=== PATIENT | male | born 1970 | race Caucasian/White ===

== ENCOUNTER 2018-01-01 19:18 | Emergency (ER) | payer BC ==
[2010-10-05 07:56] VITALS: BMI 25.0
[2018-01-01 20:15] LABS: EOSINOPHILS 3.4 % (0-7); HEMATOCRIT 41.1 % (42.0-54.0); HEMOGLOBIN 14.4 g/dL (13.5-17.5); IMMATURE GRANULOCYTES 0.3 % (0-5); LYMPHOCYTES 39.2 % (15-50); MCH 32.9 pg (26.0-34.0); MCV 93.8 fL (80.0-100.0); MEAN PLATELET VOLUME 10.4 fL (7.4-10.4); MONOCYTES 7.1 % (2-11); PLATELET COUNT 207 10x3/uL (130-400); RBC 4.38 10x6/uL (4.20-6.10); RDW 13.8 % (11.5-14.5); WBC 11.4 10x3/uL (4.8-10.8)
[2018-01-01 20:31] LABS: ALBUMIN 3.9 g/dL (3.4-5.0); ALKALINE PHOSPHATASE 75 U/L (46-116); ALT (SGPT) 32 U/L (10-68); BILIRUBIN - TOTAL 0.47 mg/dL (0.2-1.3); CALC OSMOLALITY 287 mosm/kg (275-300); CALCIUM 9.2 mg/dL (8.5-10.1); CARBON DIOXIDE 24.6 mmol/L (21.0-32.0); CHLORIDE - SERUM 105 mmol/L (98-107); CREATININE - SERUM 0.9 mg/dL (0.6-1.3); GLUCOSE 105 mg/dL (74-106); POTASSIUM - SERUM 3.9 mmol/L (3.5-5.1); PROTEIN - SERUM 7.5 g/dL (6.4-8.2); SODIUM 143 mmol/L (136-145); UREA NITROGEN 21 mg/dL (7-18); eGFR NON AFRICAN AMERICAN > 90 mL/min (90-120)
[2018-01-01 20:33] LABS: CREATINE KINASE 115 UL (21-232)
[2018-01-01 20:34] LABS: TROPONIN-I < 0.017 ng/mL (0.000-0.060)
== END 2018-01-01 20:40 | disposition left against medical advice (07) ==
LOC: D.ER 19:18
PROVIDERS: Family Medicine
DX: R53.1 Weakness (principal)

== ENCOUNTER 2018-12-31 19:33 | Observation (INO) | payer MEDICAID ==
--- NOTE | 2018-12-31 19:48 | NUR ---
PATIENT ARRIVED IN HANDCUFFS- DROWSY NOW, SO HANDCUFF'S REMOVED BY S.O. PT HAS BEEN SEARCHED, CHANGED INTO SCRUBS. PT STATES MAY NOT BE ABLE TO VOID YET SINCE HE HAS PROSTATE PROBLEMS. OFFERED FOOD AND DRINK, DECLINED.
[2018-12-31 20:22] LABS: BASOPHILS 0.4 % (0-2); EOSINOPHILS 1.4 % (0-7); HEMATOCRIT 40.7 % (42.0-54.0); HEMOGLOBIN 14.5 g/dL (13.5-17.5); IMMATURE GRANULOCYTES 0.3 % (0-5); LYMPHOCYTES 23.2 % (15-50); MCH 33.9 pg (26.0-34.0); MCHC 35.6 g/dL (31.0-37.0); MCV 95.1 fL (80.0-100.0); MEAN PLATELET VOLUME 10.2 fL (7.4-10.4); NEUTROPHILS 68.7 % (40-80); PLATELET COUNT 196 10x3/uL (130-400); RBC 4.28 10x6/uL (4.20-6.10); RDW 14.4 % (11.5-14.5); WBC 10.8 10x3/uL (4.8-10.8)
[2018-12-31 20:25] LABS: ALBUMIN 3.9 g/dL (3.4-5.0); ALKALINE PHOSPHATASE 68 U/L (46-116); ALT (SGPT) 23 U/L (10-68); BILIRUBIN - TOTAL 0.41 mg/dL (0.2-1.3); CALC OSMOLALITY 279 mosm/kg (275-300); CALCIUM 9.1 mg/dL (8.5-10.1); CARBON DIOXIDE 25.1 mmol/L (21.0-32.0); CHLORIDE - SERUM 105 mmol/L (98-107); GLUCOSE 98 mg/dL (74-106); POTASSIUM - SERUM 3.4 mmol/L (3.5-5.1); SODIUM 141 mmol/L (136-145); UREA NITROGEN 10 mg/dL (7-18); eGFR NON AFRICAN AMERICAN 85 mL/min (90-120)
[2018-12-31 20:43] VITALS: BP 111/76
--- NOTE | 2018-12-31 20:53 | NUR ---
PT DROWSY- AWAKENS TO PAINFUL STIMULI. IN AND OUT CATH PER STERILE TECHNIQUE- URINE TO LAB.
[2018-12-31 21:30] VITALS: BP 100/54
[2018-12-31 21:33] LABS: APPEARANCE CLEAR (CLEAR); BILIRUBIN NEGATIVE (NEGATIVE); COLOR YELLOW (YELLOW); GLUCOSE NEGATIVE (NEGATIVE); KETONE NEGATIVE (NEGATIVE); NITRITE NEGATIVE (NEGATIVE); PROTEIN NEGATIVE (NEGATIVE); SPECIFIC GRAVITY 1.015 (1.005-1.020); UROBILINOGEN NORMAL (NORMAL)
[2018-12-31 21:43] LABS: UDS - AMPHET NEGATIVE QUAL (NEGATIVE); UDS - BARB NEGATIVE QUAL (NEGATIVE); UDS - BENZO POSITIVE QUAL (NEGATIVE); UDS - COCAINE NEGATIVE QUAL (NEGATIVE); UDS - OPIATE NEGATIVE QUAL (NEGATIVE); UDS - PCP NEGATIVE QUAL (NEGATIVE); UDS - THC POSITIVE QUAL (NEGATIVE)
--- NOTE | 2018-12-31 22:30 | NUR ---
PT CON'T TO BE DROWSY- V/S STABLE. REPORT GIVEN TO JAROD SWANSON
--- NOTE | 2018-12-31 22:34 | NUR ---
IV NS AT 125ML/HOUR CON'T ON TRANSPORT TO ICU.
--- NOTE | 2018-12-31 22:45 | NUR ---
Patient arrived on unit from ER via stretcher to 2308. Patient highly agitated and refusing to allow to be connected to monitor. Patient states need to urinate, refuses to use urinal jug and slapped jug out of RN hands onto floor. [facility] and [facility], pulled out IV and ripped monitor leads/BP cuff off. Security present and attempting to assist in calming patient with no success. Dr Nagy paged and updated on current status, informed to notify Dr Ware. Dr Ware called, new orders recieved and medications given as ordered. Security posted outside of room, will continue to monitor.
--- NOTE | 2019-01-01 01:20 | NUR ---
Patient sleeping in bed with eyes closed, rouses to voice and returns to sleep easily. Patient continues to refuse monitoring, no apparent s/s of distress observed. Security outside of room, will continue to monitor.
--- NOTE | 2019-01-01 03:20 | NUR ---
Patient sleeping in bed with eyes closed, no apparent s/s of distress. Patient refuses to allow monitoring/BP cuff placement, becomes agitated/argumentative when attempting to place. Patient HR 68 with O2 sat 98% on room air, measurement from pulse ox. Affect is withdrawn/uncooperative, refuses to allow treatment. Guard outside room, will continue to monitor.
[2019-01-01 05:19] LABS: BASOPHILS 0.6 % (0-2); EOSINOPHILS 3.6 % (0-7); HEMATOCRIT 40.9 % (42.0-54.0); HEMOGLOBIN 14.3 g/dL (13.5-17.5); IMMATURE GRANULOCYTES 0.2 % (0-5); LYMPHOCYTES 38.8 % (15-50); MCH 33.4 pg (26.0-34.0); MCV 95.6 fL (80.0-100.0); MEAN PLATELET VOLUME 10.2 fL (7.4-10.4); MONOCYTES 7.5 % (2-11); NEUTROPHILS 49.3 % (40-80); PLATELET COUNT 205 10x3/uL (130-400); RBC 4.28 10x6/uL (4.20-6.10); RDW 14.5 % (11.5-14.5); WBC 9.7 10x3/uL (4.8-10.8)
[2019-01-01 06:10] LABS: ALBUMIN 3.7 g/dL (3.4-5.0); ALKALINE PHOSPHATASE 67 U/L (46-116); ALT (SGPT) 24 U/L (10-68); BILIRUBIN - TOTAL 0.59 mg/dL (0.2-1.3); CALC OSMOLALITY 283 mosm/kg (275-300); CALCIUM 8.8 mg/dL (8.5-10.1); CARBON DIOXIDE 25.4 mmol/L (21.0-32.0); CHLORIDE - SERUM 108 mmol/L (98-107); CREATININE - SERUM 0.9 mg/dL (0.6-1.3); GLUCOSE 92 mg/dL (74-106); POTASSIUM - SERUM 3.6 mmol/L (3.5-5.1); PROTEIN - SERUM 6.6 g/dL (6.4-8.2); SODIUM 143 mmol/L (136-145); UREA NITROGEN 11 mg/dL (7-18); eGFR NON AFRICAN AMERICAN > 90 mL/min (90-120)
[2019-01-01 06:26] VITALS: BP 110/61; BMI 32.6
[2019-01-01 07:00] VITALS: BP 129/100
--- NOTE | 2019-01-01 07:10 | NUR ---
REPORT RECIEVED, SHIFT ASSESSMENT COMPLETE, PT IS ALERT AND ORIENTED, DENIES ANY SUICIDAL THOUGHTS, ALL PPP, VSS, CALL LIGHT IN REACH
--- NOTE | 2019-01-01 09:00 | NUR ---
PT EATING BREAKFAST, DENIES ANY WANTS OR NEEDS, CALL LIGHT IN REACH
--- NOTE | 2019-01-01 11:20 | NUR ---
PT RESTING AT THIS TIME, NO NEEDS NOTED, WILL CON'T TO MONITOR
--- NOTE | 2019-01-01 12:30 | NUR ---
DR. CID AT BEDSIDE, UPDATE GIVEN
--- NOTE | 2019-01-01 13:03 | NUR ---
DR. SERRA AT BEDSIDE, UPDATE GIVEN
[2019-01-01 15:00] VITALS: BP 117/76
--- NOTE | 2019-01-01 15:15 | NUR ---
PT RESTING AT THIS TIME, NO NEEDS NOTED, WILL CON'T TO MONITOR
--- NOTE | 2019-01-01 17:30 | NUR ---
PT ACCEPTED TO [facility] IN [place]
--- NOTE | 2019-01-01 18:21 | MORECARE ---
CASE MANAGEMENT DISCHARGE SUMMARY PATIENT: ERNESTO ANAYA UNIT: [id number] ADM DATE: 12/31/18 AGE: 48 : 72 SEX: M ROOM/BED: D.2308 AUTHOR: ROBERT LOPEZ PHYSICIAN: REFERRING PHYSICIAN: ANN SERRA MD DATE OF SERVICE: 01/01/19 Discharge Plan Patient Name: ERNESTO ANAYA Facility: [facility]:[place] : 1970 Planned Disposition: Psych facility Anticipated Discharge Date: Discharge Date: Expected LOS: Initial Reviewer: [email or web address] Initial Review Date: 01/01/2019 Generated: 01/01/19 7:21 pm Comments DCP- Discharge Planning Updated by [email or web address]: Selma Carrasco on 01/01/19 5:[address] CM notified for placement into inpatient psychiatric placement. CM contacted Venessa Upton @ [facility] for eval for placement and funding. Venessa stated that she would approve patient for 3 days upon receipt of Dr. Ware note. NONA called transfer center and faxed records. CM was notified from transfer center that patient needs something in writing for auth for inpatient psych. NONA contacted Venessa again and she emailed a noticed of approval pending records. Dr. Ware dictated note not available as soon as it was available CM faxed it to [place] and transfer center. NONA spoke with Joanna @ [facility] in [place] and potential placement pending. CM will continue to follow and assist as needed with discharge planning / needs. External Providers External Provider: [facility] Next Contact Date: Service Request Date: Service Type: Resolution: Reviewer: Comments: External Provider: OTHER-OTHER Next Contact Date: Service Request Date: Service Type: Resolution: Reviewer: Comments: External Provider: [facility]ANS-TRANSFER CALL C[facility] Next Contact Date: Service Request Date: Service Type: Resolution: Reviewer: Comments: Patient Name: ERNESTO ANAYA Page [id number] at 1821 All edits/amendments must be made on the electronic document DICTATION DATE: 01/01/191820 ALLERGY AND IMMUNOLOGY SPECIALIST: DM 01/01/191820 RPT#: [id number] DC DATE: STATUS: ADM IN [facility] [address] [place] [address] END OF REPORT
--- NOTE | 2019-01-01 18:30 | NUR ---
ATTEMPTED TO CALL REPORT TO [facility], STATED THEY WOULD CALL BACK
[2019-01-01 19:00] VITALS: BP 121/80
--- NOTE | 2019-01-01 19:10 | NUR ---
Received patient resting in bed with eyes open, assessment completed per flowsheet. Patient Ao x4, agreed to allow connect to monitor for vitals check. S1/S2 noted NSR on telemetry with HR 89, rythmic and regular. Breathing is even/unlabored on room air with O2 sat 98%, lung sounds clear throughout. Full ROM all extremities with all pulses palpable, cap refill< 3 sec. Patient denies intent to harm self/others at this time, denies needs. See flowsheet for details, all VSS and will continue to monitor.
--- NOTE | 2019-01-01 19:10 | NUR ---
REPORT CALLED TO [facility]
--- NOTE | 2019-01-01 19:20 | NUR ---
[facility] called and notified of transfer needs, Ambulance available for transport in 30-40 mins.
[2019-01-01 19:30] VITALS: BP 121/80
--- NOTE | 2019-01-01 20:05 | NUR ---
EMS arrived on unit for patient transport to [facility] room 808, patient ambulated self to stretcher calm and cooperative. All belongings removed from room and sent with EMS, [facility] notified of patient leaving [facility].
--- NOTE | 2019-01-02 12:02 | MORECARE ---
CASE MANAGEMENT DISCHARGE SUMMARY PATIENT: ERNESTO ANAYA UNIT: [id number] ADM DATE: 12/31/18 AGE: 48 : 72 SEX: M ROOM/BED: D.2308 AUTHOR: ROBERT LOPEZ PHYSICIAN: REFERRING PHYSICIAN: ANN SERRA MD DATE OF SERVICE: 01/02/19 Discharge Plan Patient Name: ERNESTO ANAYA Facility: [facility]:[place] : 1970 Planned Disposition: Psych facility Anticipated Discharge Date: Discharge Date: 01/01/2019 Expected LOS: Initial Reviewer: [email or web address] Initial Review Date: 01/01/2019 Generated: 01/02/19 1:02 pm Comments DCP- Discharge Planning Updated by [email or web address]: Selma Carrasco on 01/01/19 5:[address] CM notified for placement into inpatient psychiatric placement. CM contacted Venessa Upton @ [facility] for eval for placement and funding. Venessa stated that she would approve patient for [address] receipt [address] Ware note. NONA called transfer center and faxed records. CM was notified from transfer center that patient needs something in writing for auth for inpatient psych. NONA contacted Venessa again and she emailed a noticed of approval pending records. Dr. Ware dictated note not available as soon as it was available CM faxed it to [place] and transfer center. NONA spoke with Joanna @ [facility] in [place] and potential placement pending. CM will continue to follow and assist as needed with discharge planning / needs. Last DP export: 01/01/19 5:21 p Patient Name: ERNESTO ANAYA Page [id number] at 1202 All edits/amendments must be made on the electronic document DICTATION DATE: 01/02/19 1201 TRIPE SCRAPER: AMMON 01/02/19 1201 RPT#: [id number] DC DATE:01/01/19 STATUS: DIS IN [facility] [address] [place] [address] END OF REPORT
--- NOTE | 2019-01-02 16:38 | CN ---
PATIENT NAME:ERNESTO ANAYA MEDICAL RECORD: [id number] : 72 LOCATION:RASHADD.2308 ADMIT DATE: 12/31/18 ACCOUNT: [id number] CONSULTING PHYSICIAN: HOUSTON CID MD REFERRING PHYSICIAN: ANN SERRA MD DATE OF CONSULTATION: 01/01/2019 PSYCHIATRIC CONSULTATION IDENTIFYING DATA: The patient is 48 years old and he was admitted to the hospital secondary to suicidal thoughts. CHIEF COMPLAINT: None. HISTORY OF PRESENT ILLNESS: The patient apparently was holding a gun to his head and threatening to kill himself. He also put his car into the garage with the motor running. The police were called by his who intervened and forcibly brought him to the Emergency Room where he was very agitated and aggressive with staff and required a large amount of medication to calm him. He is calm today and cooperative and he says that none of this happened. He says he never had a gun, he never had his car in the garage. He never threatened to hurt himself and he was not aggressive in the Emergency Room. He is argumentative with me when I tell him that this is what is documented. He endorses a lot of depressive symptoms. He apparently has a psychiatric history. He was followed by [facility], which was shut down some months ago and he says he has been without his medications sporadically since then. He is upset because his has apparently been seeing some other man and he found out about it yesterday. 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 He denies overt psychotic symptoms. MENTAL STATUS EXAMINATION: The patient is awake, alert and oriented fully. His mood is depressed. His affect is constricted. Thought processes are poorly organized. Memory, concentration, and abstraction abilities are impaired. He currently denies any thoughts or harming himself or others as well as psychotic symptoms. ASSESSMENT: Major depression. PLAN: At this time, the patient does not appear to be psychotic, but given the circumstances yesterday, I feel compelled to require some period of inpatient stabilization and observation. I am not comfortable letting him go home after what happened yesterday with the gun, the police, the car, the aggressive behavior and I am even less inclined to do so given the fact that he is still denying that any of this happened. I do not think he is telling me the truth. I would feel less significantly more comfortable if he just would say that he was acutely upset and did some things that he now regrets, but he is saying that he never had a gun, never put his car in the garage, was not aggressive, and has no idea why the police came to his house and forcibly too him to the hospital. That just simply does not make sense. I am going to suggest that he needs an inpatient stay and in fact, I feel strongly enough about it where I am moving towards to see him committed if necessary. I would strongly recommend he be transferred to acute inpatient psychiatric care as soon as it is practical to do so. TRANSINT:[id number] Voice Confirmation ID: [id number] DOCUMENT ID: [id number] CONSULT REPORT [id number] ERNESTO ANAYA PETER MD at 1638 CC: [id number] DICTATION DATE: 01/01/19 1448 PBX REPAIRER: 01/01/19 1608 DIS IN 01/01/19 [facility] [address] [place] [address]
== END 2019-01-01 20:05 | disposition other institution (70) ==
LOC: D.ER 19:33 → D.ICU 20:27 → OBSVTIME 20:27 → D.EDHOLD 20:27 → D.ICU 20:27
PROVIDERS: Family Medicine; ADMIT Family Medicine; ATTEND Family Medicine
DX: R45.851 Suicidal ideations (principal); F32.9 Major depressive disorder, single episode, unspecified; I10 Essential (primary) hypertension; E78.5 Hyperlipidemia, unspecified; N40.0 Benign prostatic hyperplasia without lower urinary tract symptoms

== ENCOUNTER 2020-03-11 08:52 | Emergency (ER) | payer MEDICAID ==
[~2020-03-11] VITALS: Ht 165.1 cm; Wt 66.8 kg
[2020-03-11 09:00] VITALS: Ht 165.1 cm; Wt 66.8 kg
[2020-03-11] MEDS ORDERED: NORVASC5 MG PO (09:04)
[2020-03-11] MEDS ORDERED: ULTRAM50 MG PO (09:05)
[2020-03-11] MEDS ORDERED: MILK OF MAGNESI30 ML PO (09:05)
[2020-03-11 09:34] LABS: BASOPHILS 0.3 % (0-2); EOSINOPHILS 2.4 % (0-7); HEMATOCRIT 44.6 % (42.0-54.0); HEMOGLOBIN 15.5 g/dL (13.5-17.5); IMMATURE GRANULOCYTES 0.3 % (0-5); LYMPHOCYTES 26.1 % (15-50); MCH 33.8 pg (26.0-34.0); MCHC 34.8 g/dL (31.0-37.0); MCV 97.2 fL (80.0-100.0); MEAN PLATELET VOLUME 9.8 fL (7.4-10.4); MONOCYTES 7.6 % (2-11); NEUTROPHILS 63.3 % (40-80); PLATELET COUNT 219 10x3/uL (130-400); RBC 4.59 10x6/uL (4.20-6.10); RDW 13.6 % (11.5-14.5); WBC 11.7 10x3/uL (4.8-10.8)
[2020-03-11 09:41] LABS: BILIRUBIN NEGATIVE (NEGATIVE); GLUCOSE NEGATIVE (NEGATIVE); KETONE NEGATIVE (NEGATIVE); NITRITE NEGATIVE (NEGATIVE); SPECIFIC GRAVITY 1.005 (1.005-1.020); UROBILINOGEN NORMAL (NORMAL)
[2020-03-11 09:41] LABS: CALC OSMOLALITY 268 mosm/kg (275-300); CARBON DIOXIDE 25.5 mmol/L (21.0-32.0); CHLORIDE - SERUM 99 mmol/L (98-107); CREATININE - SERUM 0.9 mg/dL (0.6-1.3); GLUCOSE 111 mg/dL (74-106); POTASSIUM - SERUM 4.1 mmol/L (3.5-5.1); SODIUM 133 mmol/L (136-145); UREA NITROGEN 18 mg/dL (7-18); eGFR NON AFRICAN AMERICAN > 90 mL/min (90-120)
[2020-03-11 09:49] LABS: ALKALINE PHOSPHATASE 79 U/L (30-120); ALT (SGPT) 20 U/L (10-68); AMYLASE - SERUM 73 U/L (25-115); BILIRUBIN - TOTAL 0.43 mg/dL (0.2-1.3); LIPASE 131 U/L (73-393); PROTEIN - SERUM 7.7 g/dL (6.4-8.2); TROPONIN-I < 0.017 ng/mL (0.000-0.060)
[2020-03-11] MEDS ORDERED: LEVSIN/ANASP0.125 MG PO (11:21)
[2020-03-11 11:47] VITALS: BP 139/86
== END 2020-03-11 11:48 | disposition home or self-care (01) ==
LOC: D.ER 08:52
PROVIDERS: Family Medicine
DX: R10.32 Left lower quadrant pain (principal); I10 Essential (primary) hypertension; J45.909 Unspecified asthma, uncomplicated; Z72.0 Tobacco use